=== PATIENT | female | born 1980 | race Caucasian/White ===

== ENCOUNTER 2018-03-04 16:33 | Emergency (ER) | payer OTHER ==
[2018-03-04] MEDS: METHOCARBAMOL 750 MG TAB PO (17:39)
[2018-03-04] MEDS: IBUPROFEN 600 MG TAB PO (17:39)
== END 2018-03-04 18:00 | disposition home or self-care (01) ==
LOC: FTE 16:33
DX: M54.5 Low back pain (principal); M72.2 Plantar fascial fibromatosis; J45.909 Unspecified asthma, uncomplicated; R40.2412 Glasgow coma scale score 13-15, at arrival to emergency department
CPT/HCPCS: 99283; Z7502